=== PATIENT | female | born 1945 | race Caucasian/White ===

== ENCOUNTER 2023-08-14 14:25 | Emergency (ER) | payer MEDICARE, MEDICAID, SELFPAY ==
[2023-08-14] VITALS (29 sets, daily range): BP systolic 82–153; BP diastolic 49–83; PULSE 82–137; RESP 13–28; TEMP 36.7–37.1; O2SAT 91–100; BMI 31.1
--- NOTE | 2023-08-14 14:35 | ECG_ITS ---
The [facility] Test Date: 2023-08-14 Pat Name: LOUIE DIAZ Department: Room: - Gender: Female Maintenance Operator: : 1945 Requested By: NOLVIA PRETTY Order Number: [id number] Reading MD: CHRISSY WYNNE Measurements Intervals [employer] Rate: 116 P: -[id number] ME: -[id number] QRS: 75 QRSD: 86 T: 133 QT: 344 QTc: 413 Interpretive Statements 09652 Atrial fibrillation with rapid ventricular response 48581 Nonspecific Twave abnormality, probably digitalis effect 0102 ARTIFACT PRESENT 9140 abnormal rhythm ECG No previous ECG available for comparison Electronically Signed On 08-16-2023 9:19:49 EDT by CHRISSY WYNNE
--- NOTE | 2023-08-14 14:35 | ED.GENADUL1 ---
HPI - General Adult General Chief complaint: Weakness Stated complaint: GENERAL ILLNESS Time Seen by Provider: 08/14/23 14:35 History of Present Illness HPI narrative: this patient was transferred by ambulance to our facility from a alf. We'll have to review her medical records from that facility as she is a very very poor historian, she does not know the date the month or the year. Her short-term memory is altered as well. She says her chief complaint today is that she her belly hurts.this patient was seen by advanced nurse practitioner who is suspicious that she may have had aspiration. Subsequent that she now has some diarrhea. They did test her for Covid and it was negative. They also tested her for C. difficile. She is from [facility] per transfer sheet information indicates that she has chronic kidney disease stage III, bipolar disorder, anxiety, type 2 diabetes next hyperlipidemia/initial hypertension/cardiac arrhythmia unspecified and lastly major depressive disorder. Additionally unspecified dementia and cognitive communication deficit her records indicates she is a full code. I tried contacting her power of civil attorney but the phone call did not have a voice mail and no one answered the telephone to get an update on there wishes. Related Data Home Medications Medication Instructions Recorded Confirmed acetaminophen 500 mg tablet 1,000 mg PO Q6H 08/14/23 08/14/23 (Acetaminophen Extra Strength) aripiprazole 2 mg tablet (Abilify) 2 mg PO DAILY 08/14/23 08/14/23 aspirin 81 mg tablet,delayed 81 mg PO DAILY 08/14/23 08/14/23 release (Adult Low Dose Aspirin) atorvastatin 10 mg tablet 10 mg PO QPM 08/14/23 08/14/23 buspirone 10 mg tablet 10 mg PO BID 08/14/23 08/14/23 ceftriaxone 1 gram solution for 1 g IM DAILY 08/14/23 08/14/23 injection cholecalciferol (vitamin D3) 50 2,000 unit PO DAILY 08/14/23 08/14/23 mcg (2,000 unit) capsule dapagliflozin propanediol 10 mg 10 mg PO DAILY 08/14/23 08/14/23 tablet (Farxiga) dulaglutide 4.5 mg/0.5 mL 4.5 mg subcut QWEEK 08/14/23 08/14/23 subcutaneous pen injector ([facility]) escitalopram oxalate 20 mg tablet 20 mg PO DAILY 08/14/23 08/14/23 (Lexapro) glucagon 1 mg solution for 1 mg IM Q20M 08/14/23 08/14/23 injection (GlucaGen HypoKit) insulin detemir U-100 100 unit/mL 30 unit subcut QPM 08/14/23 08/14/23 (3 mL) subcutaneous pen insulin lispro 100 unit/mL 1 sliding scale dose subcut 08/14/23 08/14/23 subcutaneous pen (Humalog KwikPen USEASDIRECTD (U-100) Insulin) lamotrigine 100 mg tablet 100 mg PO BID 08/14/23 08/14/23 (Lamictal) loperamide 2 mg capsule 2 mg PO Q6H 08/14/23 08/14/23 (Anti-Diarrheal (loperamide)) melatonin 5 mg capsule 5 mg PO .q24 PRN insomnia 08/14/23 08/14/23 metformin 1,000 mg tablet 1,000 mg PO BID 08/14/23 08/14/23 ondansetron HCl 4 mg tablet 4 mg PO Q4H 08/14/23 08/14/23 potassium chloride 10 mEq 10 meq PO DAILY 08/14/23 08/14/23 tablet,extended release (Klor-Con) Allergies Allergy/AdvReac Type Severity Reaction Status Date / Time saxagliptin AdvReac Intermediate Verified 08/14[facility]23 14:[facility] Medical History (Updated 08/14/23 @ 17:40 by Moe Sharma MD) Anxiety ?F41.9 - Anxiety disorder, unspecified (ICD-10) Bipolar disorder ?F31.9 - Bipolar disorder, unspecified (ICD-10) Depression ?F32.A - Depression, unspecified (ICD-10) Diabetes ?E11.9 - Type 2 diabetes mellitus without complications (ICD-10) Hyperlipidemia ?E78.5 - Hyperlipidemia, unspecified (ICD-10) Hypertension ?I10 - Essential (primary) hypertension (ICD-10) Kidney disease ?N28.9 - Disorder of kidney and ureter, unspecified (ICD-10) Exam Narrative Exam Narrative: patient's awake alert but this oriented to disposition and situation at hand. Does not know the date month or year. Has short-term memory loss as well. Says her only discomfort at this time is abdominal discomfort. She appears older than stated age. Vital signs are noted and she's found to be in atrial fibrillation. Patient does not appear to be dyspneic and her pulse oximetry is ninety-seven percent on room air. She has slight wet cough. Skin is warm and dry with no diaphoresis or pallor. Abdomen she has some bruising across the lower suprapubic area but no hematomas. No guarding rebound or rigidity. Her legs do have 1+ bilateral edema. She has good perfusion with no evidence of tissue ischemia or mottling. Neurological she follows commands but is a said she has cognitivve impairment. She has spontaneous movement of all the extremities. Her cranial nerves appear to be normal. Lungs have some scattered rhonchi. Constitutional Vital Signs, click to edit/add: Last Vital Signs Temp 98.8 F 08/14/23 17:15 Pulse 89 08/14/23 17:01 Resp 28 H 08/14/23 17:01 BP 147/83 H 08/14/23 17:01 Pulse Ox 96 08/14/23 17:15 O2 Del Method Room Air 08/14/23 17:15 Course Vital Signs Vital signs: Vital Signs Temperature 98.0 F 08/14/23 14:30 Pulse Rate 116 H 08/14/23 14:30 Respiratory Rate 16 08/14/23 14:30 Blood Pressure 126/49 08/14/23 14:30 Pulse Oximetry 98 08/14/23 14:30 Oxygen Delivery Method Room Air 08/14/23 14:30 Temperature 98.8 F 08/14/23 17:15 Pulse Rate 89 08/14/23 17:01 Respiratory Rate 28 H 08/14/23 17:01 Blood Pressure 147/83 H 08/14/23 17:01 Pulse Oximetry 96 08/14/23 17:15 Oxygen Delivery Method Room Air 08/14/23 17:15 Medical Decision Making MDM Narrative Medical decision making narrative: patient's laboratory testing indicates today that she does have Covid positive the chest x-ray is consistent with Covid type pneumonitis. Her oxygen saturations are good. Furthermore urinalysis would suggest urinary tract infection and with lactate levels being elevated and white blood cell count she makes mixed urticaria for sepsis. She was given saline boluses per protocols and started on broad-spectrum antibiotic. We contacted her family to confirm that she is a full code and they indicated that she was. We will get a CT wraps abdomen to make sure she doesn't have urinary tract obstruction necessitating urology evaluation. The hospital since [facility] has accepted the case if there is no urinary obstruction. Lab Data Labs: Lab Results 08/14/23 08/14/23 08/14/23 Range/Units 14:50 15:02 15:09 WBC 20.8 H (4.0-11.0) 10^3/uL RBC 3.55 L (4.20-5.40) 10^6/uL Hgb 10.5 L (12.0-16.0) g/dL Hct 32.0 L (36.0-48.0) % MCV 90.1 (81.0-99.0) fL MCH 29.6 (26.7-34.0) pg MCHC 32.8 (29.9-35.2) g/dL RDW 17.7 H (11.0-15.0) % Plt Count 105 L (150-450) 10^3/uL MPV 11.0 (9.5-13.5) fL Neut % (Auto) 88.0 H (43.0-75.0) % Lymph % (Auto) 2.5 L (20.5-60.0) % [place]one % (Auto) 8.0 (1.7-12.0) % Eos % (Auto) 0.5 L (0.9-7.0) % Baso % (Auto) 0.2 (0.2-2.0) % Neut # (Auto) 18.3 H (1.4-6.5) 10^3/uL Lymph # (Auto) 0.5 L (1.2-3.8) 10^3/uL Boone # (Auto) 1.7 H (0.3-0.8) 10^3/uL Eos # (Auto) 0.1 (0.0-0.7) 10^3/uL Baso # (Auto) 0.1 (0.0-0.1) 10^3/uL Abs Immat Gran (auto) 0.17 H (0.00-0.03) 10^3/uL Imm/Tot Granulo (auto) 0.8 H (0.0-0.5) % VBG pH (7.330-7.430) VBG pCO2 (40.0-52.0) mmHg Sodium 132 L (136-145) mmol/L Potassium 4.0 (3.5-5.1) mmol/L Chloride 98 (98-107) mmol/L Carbon Dioxide 13.3 L (21.0-32.0) mmol/L Anion Gap 24.7 BUN 109.0 H* (7.0-18.0) mg/dL Creatinine 5.18 H* (0.55-1.02) mg/dL Est GFR ( Amer) 10 L (>=60) Est GFR (Non-Af Amer) 8 L (>=60) BUN/Creatinine Ratio 21.0 Glucose 236 H (74-106) mg/dL Lactate 5.5 H* (0.4-2.0) mmol/L Calcium 8.7 (8.5-10.1) mg/dL Total Bilirubin 0.9 (0.2-1.0) mg/dL AST 26 (15-37) U/L ALT 17 (14-59) U/L Alkaline Phosphatase 179 H (46-116) U/L Troponin I High Sens 31.3 (4.0-51.3) pg/mL Total Protein 6.4 (6.4-8.2) g/dL Albumin 2.3 L (3.4-5.0) g/dL Globulin 4.1 g/dL Albumin/Globulin Ratio 0.6 Lipase 54.0 (16.0-77.0) U/L TSH 1.811 (0.358-3.740) uIU/mL Urine Color Lt. yellow (YELLOW) Urine Clarity Slightly cloudy A (CLEAR) Urine pH 6.0 (5.0-9.0) Ur Specific [place] 1.015 (1.005-1.025) Urine Protein 100 A (NEG/TRACE) mg/dL Urine Glucose (UA) 250 A (NEGATIVE) mg/dL Urine Ketones Negative (NEGATIVE) mg/dL Urine Occult Blood Large A (NEGATIVE) Urine Nitrite Negative (NEGATIVE) Urine Bilirubin Negative (NEGATIVE) Urine Urobilinogen 0.2 (0.2-1.0) EU/dL Ur Leukocyte Esterase Small A (NEGATIVE) Urine RBC 2-5 A (0-2) #/HPF Urine WBC 5-10 A (NONE SEEN) #/HPF Ur Squamous Epith Cells Rare (NONE/RARE) #/LPF Urine Crystals None seen (None Seen) #/HPF Urine Bacteria Small A (NONE SEEN) #/HPF Urine Casts None seen (NONE SEEN) #/LPF Urine Mucus None seen (NONE SEEN) Ur Culture Indicated? Yes SARS-CoV-2 (PCR) (NEGATIVE) 08/14/23 08/14/23 Range/Units 15:11 15:59 WBC (4.0-11.0) 10^3/uL RBC (4.20-5.40) 10^6/uL Hgb (12.0-16.0) g/dL Hct (36.0-48.0) % MCV (81.0-99.0) fL MCH (26.7-34.0) pg MCHC (29.9-35.2) g/dL RDW (11.0-15.0) % Plt Count (150-450) 10^3/uL MPV (9.5-13.5) fL Neut % (Auto) (43.0-75.0) % Lymph % (Auto) (20.5-60.0) % Boone % (Auto) (1.7-12.0) % Eos % (Auto) (0.9-7.0) % Baso % (Auto) (0.2-2.0) % Neut # (Auto) (1.4-6.5) 10^3/uL Lymph # (Auto) (1.2-3.8) 10^3/uL Boone # (Auto) (0.3-0.8) 10^3/uL Eos # (Auto) (0.0-0.7) 10^3/uL Baso # (Auto) (0.0-0.1) 10^3/uL Abs Immat Gran (auto) (0.00-0.03) 10^3/uL Imm/Tot Granulo (auto) (0.0-0.5) % VBG pH 7.264 L (7.330-7.430) VBG pCO2 29.2 L (40.0-52.0) mmHg Sodium (136-145) mmol/L Potassium (3.5-5.1) mmol/L Chloride (98-107) mmol/L Carbon Dioxide (21.0-32.0) mmol/L Anion Gap BUN (7.0-18.0) mg/dL Creatinine (0.55-1.02) mg/dL Est GFR ( Amer) (>=60) Est GFR (Non-Af Amer) (>=60) BUN/Creatinine Ratio Glucose (74-106) mg/dL Lactate (0.4-2.0) mmol/L Calcium (8.5-10.1) mg/dL Total Bilirubin (0.2-1.0) mg/dL AST (15-37) U/L ALT (14-59) U/L Alkaline Phosphatase (46-116) U/L Troponin I High Sens (4.0-51.3) pg/mL Total Protein (6.4-8.2) g/dL Albumin (3.4-5.0) g/dL Globulin g/dL Albumin/Globulin Ratio Lipase (16.0-77.0) U/L TSH (0.358-3.740) uIU/mL Urine Color (YELLOW) Urine Clarity (CLEAR) Urine pH (5.0-9.0) Ur Specific [place] (1.005-1.025) Urine Protein (NEG/TRACE) mg/dL Urine Glucose (UA) (NEGATIVE) mg/dL Urine Ketones (NEGATIVE) mg/dL Urine Occult Blood (NEGATIVE) Urine Nitrite (NEGATIVE) Urine Bilirubin (NEGATIVE) Urine Urobilinogen (0.2-1.0) EU/dL Ur Leukocyte Esterase (NEGATIVE) Urine RBC (0-2) #/HPF Urine WBC (NONE SEEN) #/HPF Ur Squamous Epith Cells (NONE/RARE) #/LPF Urine Crystals (None Seen) #/HPF Urine Bacteria (NONE SEEN) #/HPF Urine Casts (NONE SEEN) #/LPF Urine Mucus (NONE SEEN) Ur Culture Indicated? SARS-CoV-2 (PCR) Positive A (NEGATIVE) Discharge Plan Discharge Chief Complaint: Weakness Clinical Impression: COVID-19, Acute renal failure, Sepsis Patient Disposition: [facility] Time of Disposition Decision: 17:40 Mode of Transportation: EMS Prescriptions / Home Meds: No Action aripiprazole [Abilify] 2 mg tablet 2 mg PO DAILY aspirin [Adult Low Dose Aspirin] 81 mg tablet,delayed release (DR/EC) 81 mg PO DAILY atorvastatin 10 mg tablet 10 mg PO QPM buspirone 10 mg tablet 10 mg PO BID cholecalciferol (vitamin D3) 50 mcg (2,000 unit) capsule 2,000 unit PO DAILY Farxiga 10 mg tablet 10 mg PO DAILY GlucaGen HypoKit 1 mg recon soln 1 mg IM Q20M Rx Instructions: until target blood sugar attained insulin lispro [Humalog KwikPen Insulin] 100 unit/mL insulin pen 1 sliding scale dose subcut USEASDIRECTD loperamide [Anti-Diarrheal (loperamide)] 2 mg capsule 2 mg PO Q6H lamotrigine [Lamictal] 100 mg tablet 100 mg PO BID insulin detemir U-100 100 unit/mL (3 mL) insulin pen 30 unit subcut QPM escitalopram oxalate [Lexapro] 20 mg tablet 20 mg PO DAILY melatonin 5 mg capsule 5 mg PO .q24 PRN (Reason: insomnia) metformin 1,000 mg tablet 1,000 mg PO BID potassium chloride [Klor-Con 10] 10 mEq tablet extended release 10 meq PO DAILY Trulicity 4.5 mg/0.5 mL pen injector 4.5 mg subcut QWEEK acetaminophen [Acetaminophen Extra Strength] 500 mg tablet 1,000 mg PO Q6H ondansetron HCl 4 mg tablet 4 mg PO Q4H Rx Instructions: give 1st dose 30min before emetogenic chemo ceftriaxone 1 gram recon soln 1 g IM DAILY Patient Comments: start 08/14, end 08/15 Referrals: NOLVIA PRETTY [Primary Care Provider] - 1 week
--- NOTE | 2023-08-14 14:47 | XR_ITS ---
The [place] [id number] Patient Name: LOUIE DIAZ MRN: [id number] date: 1945 Sex: F Assigned Patient Location: ER Current Patient Location: ER Accession/Order Number: [id number] Exam Date: 08/14/2023 15:42 Report Date: 08/14/2023 17:13 At the request of: AYALA BENOIT Procedure: XR chest 1V ONE-VIEW CHEST RADIOGRAPH, 08/14/2023, 3:42 PM EDT COMPARISON: Chest, 07/09/2011. CLINICAL HISTORY: weakness Findings and impression: 1. Diffuse interstitial pulmonary edema. Some subtle underlying inflammatory or infectious pneumonitis would be difficult to exclude. 2. Cardiomegaly. 3. No acute osseous abnormality. Degenerative changes of visualized spine. The bones are demineralized. Electronically authenticated by: Taylor PRUITT Date: 08/14/2023 17:13
--- NOTE | 2023-08-14 14:49 | ECG_ITS ---
The [facility] Test Date: 2023-08-14 Pat Name: LOUIE DIAZ Department: Room: - Gender: Female Felled Seam Operator: : 1945 Requested By: NOLVIA PRETTY Order Number: [id number] Reading MD: CHRISSY WYNNE Measurements Intervals [place] Rate: 137 P: -91956 [place]: -55702 QRS: 70 QRSD: 88 T: 130 QT: 312 QTc: 392 Interpretive Statements 96290 Atrial fibrillation with rapid ventricular response [address] elevation [address] & Twave abnormality, probably digitalis effect 9140 abnormal rhythm ECG Compared to ECG 08/14/2023 14:35:17 ST (T wave) deviation now present Electronically Signed On 08-16-2023 9:20:00 EDT by CHRISSY WYNNE
[2023-08-14] MEDS: 0.9 % SODIUM CHLORIDE 1,000 ML 100 ML IV (14:54)
--- NOTE | 2023-08-14 15:00 | PC.NURSE ---
urine obtained with a straight cath, lab at bedside for labs orderd
[2023-08-14 15:27] LABS: Bilirubin Urine NEGATIVE (NEGATIVE); Blood Urine LARGE (NEGATIVE); Color Urine LT. YELLOW (YELLOW); Glucose Urine UA 250 mg/dL (NEGATIVE); Ketones Urine NEGATIVE (NEGATIVE); Leukocyte Esterase Urine SMALL (NEGATIVE); Nitrite Urine NEGATIVE (NEGATIVE); Protein Urine 100 mg/dL (NEG/TRACE); Specific Gravity Urine 1.015 (1.005-1.025); Urine Microscopic Indicated YES; Urobilinogen Urine 0.2 EU/dL (0.2-1.0)
[2023-08-14 15:29] LABS: Basophils Absolute Auto 0.1 10^3/uL (0.0-0.1); Basophils Percent Auto 0.2 % (0.2-2.0); Eosinophils Absolute Auto 0.1 10^3/uL (0.0-0.7); Eosinophils Percent Auto 0.5 % (0.9-7.0); Hemoglobin 10.5 g/dL (12.0-16.0); Immature Granulocytes Abs Auto 0.17 10^3/uL (0.00-0.03); Immature Granulocytes Pct Auto 0.8 % (0.0-0.5); Lymphocytes Absolute Auto 0.5 10^3/uL (1.2-3.8); Lymphocytes Percent Auto 2.5 % (20.5-60.0); Mean Corpuscular HGB Conc 32.8 g/dL (29.9-35.2); Mean Corpuscular Hemoglobin 29.6 pg (26.7-34.0); Mean Corpuscular Volume 90.1 fL (81.0-99.0); Monocytes Absolute Auto 1.7 10^3/uL (0.3-0.8); Neutrophils Absolute Auto 18.3 10^3/uL (1.4-6.5); Platelet Count 105 10^3/uL (150-450); Red Blood Count 3.55 10^6/uL (4.20-5.40); Red Cell Distribution Width 17.7 % (11.0-15.0); White Blood Count 20.8 10^3/uL (4.0-11.0)
[2023-08-14 15:34] LABS: Bacteria Urine SMALL #/HPF (NONE SEEN); Cast Seen? NONE SEEN #/LPF (NONE SEEN); Clarity Urine SLIGHTLY CLOUDY (CLEAR); Crystals Seen? None Seen #/HPF (None Seen); Mucus Urine NONE SEEN (NONE SEEN); Squamous Epithelial Cell Urine RARE #/LPF (NONE/RARE); Urine Culture Indicated YES
[2023-08-14 15:44] LABS: Lactate/Lactic Acid 5.5 mmol/L (0.4-2.0)
[2023-08-14 15:48] LABS: Thyroid Stimulating Hormone 1.811 uIU/mL (0.358-3.740)
[2023-08-14 15:48] LABS: SARS-CoV-2 Ag POSITIVE (NEGATIVE)
[2023-08-14 15:52] LABS: Alanine Aminotransferase 17 U/L (14-59); Albumin Globulin Ratio 0.6; Albumin Level 2.3 g/dL (3.4-5.0); Alkaline Phosphatase 179 U/L (46-116); Anion Gap 24.7; Aspartate Amino Transferase 26 U/L (15-37); Bilirubin Total 0.9 mg/dL (0.2-1.0); Calcium 8.7 mg/dL (8.5-10.1); Carbon Dioxide 13.3 mmol/L (21.0-32.0); Chloride 98 mmol/L (98-107); Estimated GFR (African America 10 (>=60); Estimated GFR (Non-African Ame 8 (>=60); Globulin 4.1 g/dL; Glucose 236 mg/dL (74-106); Sodium 132 mmol/L (136-145); Total Protein 6.4 g/dL (6.4-8.2); Troponin I High Sensitivity 31.3 pg/mL (4.0-51.3)
[2023-08-14] MEDS: CEFTRIAXONE 1,000 MG in 0.9 % SODIUM CHLORIDE 50 ML 100 MG IV (16:05)
[2023-08-14] MEDS: SODIUM CHLORIDE 616 ML IV (16:06)
[2023-08-14 16:09] LABS: PCO2 VBG 29.2 mmHg (40.0-52.0); pH VBG 7.264 (7.330-7.430)
--- NOTE | 2023-08-14 16:27 | PC.NURSE ---
Sepsis protocol ordered by ER DR, pharmacy and lab notified, all lab work pulled, IV fluids up and IV ATB up as ordered
--- NOTE | 2023-08-14 17:31 | CT_ITS ---
The [address] [address] Patient Name: LOUIE DIAZ MRN: [id number] date: 1945 Sex: F Assigned Patient Location: ER Current Patient Location: ER Accession/Order Number: [id number] Exam Date: 08/14/2023 17:48 Report Date: 08/14/2023 18:58 At the request of: AYALA BENOIT Procedure: CT abdomen pelvis wo con EXAM: CT abdomen pelvis wo con HISTORY: renal failure COMPARISON: None. TECHNIQUE: Axial CT imaging was performed through the abdomen and pelvis without intravenous contrast. Multiplanar reformats were performed. Dose reduction techniques were achieved by using automated exposure control and/or adjustment of mA and/or kV according to patient size and/or use of iterative reconstruction technique. FINDINGS: Lower thorax: Bilateral lower lobes interlobular septal thickening, bibasilar atelectasis and peribronchial thickening. Findings can be due to pulmonary edema. However, multifocal pneumonia cannot be excluded. Interatrial lipomatous hypertrophy. Coronary artery and mitral valve annulus calcification. GI upper: Unremarkable. Liver: The liver is cirrhotic morphology and contour. Gallbladder: Cholecystectomy. Biliary system: No intra or extrahepatic biliary ductal dilatation. Spleen: Normal size. Pancreas: Atrophic pancreatic body and tail. There are innumerable desiccation seen throughout the pancreas, representing chronic pancreatitis. No definite pancreatic ductal dilatation. There is peripancreatic fat stranding, can be due to chronic liver disease or acute pancreatitis. Correlation with pancreatic enzyme is recommended. Adrenal glands: Normal adrenal glands. Kidneys/ureters: Atrophic left kidney, containing multiple calcifications, representing mixed of vascular constipation and stones. There is a 1 cm stone at the right UP junction, resulting in mild to moderate right hydronephrosis. There is a 0.3 cm right renal stone. Vessels: No aneurysm. Lymph Nodes: No lymphadenopathy. Small bowel: No wall thickening or dilatation. Colon: No wall thickening or dilatation. There are sigmoid diverticulosis without evidence of acute diverticulitis. Appendix: No findings of appendicitis. Peritoneal cavity: No pneumoperitoneum. Small perihepatic ascites. Lower : Unremarkable. Bones: No acute bony abnormality. Soft tissues: No acute finding. Additional findings: None. CT/CT abdomen pelvis wo con IMPRESSION: Limited study due to lack of intravenous contrast and subtle lesions cannot be evaluated. A 1 cm stone at the right UP junction, resulting in mild to moderate right hydronephrosis. A 0.3 cm right renal stone. Atrophic left kidney, containing multiple calcifications, representing mixed of vascular constipation and stones. Cirrhotic liver. Small perihepatic ascites. Bilateral lower lobes interlobular septal thickening, bibasilar atelectasis and peribronchial thickening. Findings can be due to pulmonary edema. However, multifocal pneumonia cannot be excluded. CT evidence of chronic pancreatitis. No definite pancreatic ductal dilatation. Peripancreatic fat stranding, can be due to chronic liver disease or acute pancreatitis. Correlation with pancreatic enzyme is recommended. Electronically authenticated by: TATIANA BONNER Date: 08/14/2023 18:58
[2023-08-14 17:44] LABS: Acetone NEGATIVE (NEGATIVE)
[2023-08-14 20:28] LABS: Lactate/Lactic Acid 3.7 mmol/L (0.4-2.0)
--- NOTE | 2023-08-14 22:00 | PC.NURSE ---
Patient to [facility]'s. Report called to their ER. Talked with Maribell
== END 2023-08-14 21:47 | disposition short-term general hospital (02) ==
PROVIDERS: Emergency Medicine Emergency Medical Services; Emergency Provider Internal Medicine; PCP Family Medicine
DX: A41.89 Other specified sepsis (principal); U07.1 COVID-19; N18.30 Chronic kidney disease, stage 3 unspecified; F41.9 Anxiety disorder, unspecified; E11.22 Type 2 diabetes mellitus with diabetic chronic kidney disease; E78.5 Hyperlipidemia, unspecified; I12.9 Hypertensive chronic kidney disease with stage 1 through stage 4 chronic kidney disease, or unspecified chronic kidney disease; I49.9 Cardiac arrhythmia, unspecified; F31.9 Bipolar disorder, unspecified; F03.90 Unspecified dementia, unspecified severity, without behavioral disturbance, psychotic disturbance, mood disturbance, and anxiety; Z79.82 Long term (current) use of aspirin; Z79.4 Long term (current) use of insulin; Z79.84 Long term (current) use of oral hypoglycemic drugs; N17.9 Acute kidney failure, unspecified
CPT/HCPCS: 36415; 71045; 74176; 80053; 81001; 82009; 82800; 83605; 83690; 84443; 84484; 85025; 87040; 87086; 87811; 93005; 99285